=== PATIENT | female | born 1990 | race Hispanic/Latino ===

== ENCOUNTER 2017-03-19 10:33 | Emergency (ER) | payer OTHER ==
[2017-03-19 10:54] VITALS: BMI 26.6
[2017-03-19] MEDS ORDERED: Sodium Chloride 0.9% 1,000 ML IV STA (11:14)
[2017-03-19] MEDS ORDERED: guaiFENesin DM 200 mg-20 mg/10 ml UD PO PRN (11:15)
[2017-03-19] MEDS ORDERED: Albuterol-Ipratrop 3 mg / 0.5 (3 ml) UD IH STA (11:16)
--- NOTE | 2017-03-19 11:20 | ED PDOC ---
Arrival/HPI - General Chief Complaint: Flu-like Symptoms Time Seen by Provider: 03/19/17 11:13 Historian: Patient - History of Present Illness Narrative History of Present Illness (Text): 03/19/17 11:18 pt p/w + 4 days onset of dry coughing, worsening over the last few days, OTC medications are not helping; + bodyaches, + sore throat, + runny nose, + severe coughing inducing her to vomit, noted at least ~ 10 episodes of vomiting since 1 -2 days; + fever/chills, no sweats; pt states she passed out yesterday, no cp/ palpitations, + sob/wheezing, no abd pain, no numbness/tingling, no urinary/ bowel changes, no fall/trauma/travel, ? sick contact (pt works as a pre-schoolschool bus driver/custodian); pt also noted right thigh rash x 1 week (puritic and slightly painful) ; pt states no diarrhea/urinary changes; pt is here for further eval; pt's without other complaints. 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 - Renal Hx Renal Disorder: No - Endocrine/Metabolic Hx Endocrine Disorders: No - Hematological/Oncological Hx Blood Disorders: Yes Hx Cancer: Yes (cervical cancer) - Gastrointestinal Hx Gastrointestinal Disorders: No - Psychiatric Hx Substance Use: No - Surgical History Hx Tonsillectomy: Yes - Anesthesia Hx Anesthesia: (t) Hx Anesthesia Reactions: No Hx Malignant Hyperthermia: No - Suicidal Assessment Suicidal Thoughts: No Family/Social History - Physician Review Nursing Documentation Reviewed: Yes Family/Social History: No Known Family HX (no early family hx of IA, no sudden in family members; no family members requiring pacemaker/defibillrators) Smoking Status: Former Smoker (quit 6months ago) Hx Alcohol Use: Yes Frequency of alcohol use: Socially Hx Substance Use: No Allergies/Home Meds Allergies/Adverse Reactions: Allergies chocolate flavor Allergy (Verified 03/19/17 10:55) RASH lactase [From Dairy Aid] Allergy (Verified 03/19/17 10:55) RASH mold Allergy (Verified 03/19/17 10:55) RASH thiamine (vitamin B1) [From Thiamilate] Allergy (Verified 03/19/17 10:55) RASH dust Allergy (Uncoded 03/19/17 10:55) RASH Home Medications: Home Meds Medication Instructions Recorded Confirmed Albuterol HFA [Ventolin HFA 90 2 puff PO PRN PRN 03/19/17 03/19/17 mcg/actuation (8 g)] Review of Systems - Review of Systems Constitutional: Fatigue, Fevers Eyes: Normal ENT: Sore Throat, Rhinorrhea, Sinus Congestion. absent: Hearing Changes, Voice Changes Respiratory: SOB, Cough, Wheezing. absent: Sputum Cardiovascular: Syncope Gastrointestinal: Nausea, Vomiting Genitourinary Female: Normal Musculoskeletal: Normal Skin: Rash Neurological: Headache, Dizziness Endocrine: Normal Hemo/Lymphatic: Normal Psychiatric: Normal Physical Exam Vital Signs Reviewed: Yes (elevated HR/TEMP) Vital Signs Temp Pulse Resp BP Pulse Ox 03/19/17 13:22 100.5 F H 112 H 18 152/71 H 100 03/19/17 12:50 118 H 17 155/76 H 100 03/19/17 10:55 101.3 F H 125 H 20 127/88 97 Temperature: Febrile Blood Pressure: Normal Pulse: Tachycardic Respiratory Rate: Normal Appearance: Positive for: Well-Appearing, Other (uncomfortable, actively coughing/dry coughing; resting in bed, NAD) Pain Distress: None Mental Status: Positive for: Alert and Oriented X 3 - Systems Exam Head: Present: Atraumatic, Normocephalic Pupils: Present: PERRL Extroacular Muscles: Present: EOMI Conjunctiva: Present: Normal Ears: Present: Normal Mouth: Present: Moist Mucous Membranes Pharnyx: Present: Normal Neck: Present: Normal Range of Motion Respiratory/Chest: Present: Clear to Auscultation (no wheezing/rales/rhonchi noted, decr breath sounds noted bilaterally), Decreased Breath Sounds. No: Wheezes, Rales Cardiovascular: Present: Normal S1, S2, Other (+ tachycardic; no murmur) Abdomen: Present: Normal Bowel Sounds, Other (well nourished female, no focal tenderness, no 's sign, no mcburney's point tenderness). No: Tenderness, Distention Back: Present: Normal Inspection. No: CVA Tenderness Upper Extremity: Present: Normal Inspection, Normal ROM, NORMAL PULSES. No: Edema Lower Extremity: Present: Normal Inspection, NORMAL PULSES, Normal ROM Neurological: Present: GCS=15, CN II-XII Intact, Speech Normal Skin: Present: Warm, Normal Color, Other (noted an oval shaped patch of vesicluar like rashes located at the right inner/medial anterior thigh region; lesions appears to be clusters of vesicular lesions with slight erythematous base; no nikosky's sign noted) Psychiatric: Present: Alert, Oriented x 3, Normal Insight, Normal Concentration , Normal Affect Medical Decision Making ED Course and Treatment: 03/19/17 11:30 pt with fever/dehydration, post-tussive vomiting; decr appetite; ? sick contact ; syncope pt's syncope unlikely due to cardiac cause A/P: fever/dizzy/vomiting/syncope - labs, UA - iv - xray - observe, supportive care 03/19/2017 12:57 Chest X-ray HISTORY: COMPARISON: No prior. TECHNIQUE: Chest PA and lateral FINDINGS: LINES AND TUBES: None. LUNG AND PLEURA: There is mild pulmonary hyperinflation and peribronchial thickening with streaky opacities in the lungs. No focal consolidation. HEART AND MEDIASTINUM: The heart is not enlarged. The hilar and mediastinal contours are within normal limits. SKELETAL STRUCTURES: The bony structures are within normal limits for the patient's age. VISUALIZED UPPER ABDOMEN: Normal. OTHER FINDINGS: None. IMPRESSION: Findings are most compatible with reactive small airway disease/ viral bronchitis/atypical penumonitis. No lobar pneumonia. Dictator: Wendy Sheehan MD 03/19/17 13:50 pt is doing well pt's vital signs are improved pt did not vomit while in the ED pt's coughing continues however pt remained comfortable pt is made aware of her medical results pt is encouraged fluids pt is instructed on trying 1 tsp of honey for coughing control pt will f/u as directed pt will be discharged home Reassessment Condition: Improved - Lab Interpretations Lab Results: 03/19/17 11:45 03/19/17 11:45 Lab Results 03/19/17 11:45: Sodium 137, Potassium 4.0, Chloride 101, Carbon Dioxide 25, Anion Gap 15, BUN 14, Creatinine 0.7, Est GFR ( Amer) > 60, Est GFR (Non- Af Amer) > 60, Random Glucose 94, Calcium 9.2, Total Bilirubin 0.7, AST 25, ALT 32, Alkaline Phosphatase 66, Total Protein 7.8, Albumin 4.2, Globulin 3.6, Albumin/Globulin Ratio 1.1 03/19/17 11:45: WBC 8.7, RBC 4.54, Hgb 14.5, Hct 41.7, MCV 91.9, MCH 31.9, MCHC 34.8, RDW 12.6, Plt Count 289, MPV 9.2, Gran % 75.1 H, Lymph % (Auto) 13.1 L, [place] % (Auto) 11.6 H, Eos % (Auto) 0.0 L, Baso % (Auto) 0.2, Gran # 6.55 H, Lymph # 1.1 L, [place] # 1.0 H, Eos # 0.0, Baso # 0.02 I have reviewed the lab results: Yes Interpretation: All labs normal - RAD Interpretation Narrative RAD Interpretations (Text): 03/19/17 13:14 FINDINGS: LINES AND TUBES: None. LUNG AND PLEURA: There is mild pulmonary hyperinflation and peribronchial thickening with streaky opacities in the lungs. No focal consolidation. HEART AND MEDIASTINUM: The heart is not enlarged. The hilar and mediastinal contours are within normal limits. SKELETAL STRUCTURES: The bony structures are within normal limits for the patient's age. VISUALIZED UPPER ABDOMEN: Normal. OTHER FINDINGS: None. IMPRESSION: Findings are most compatible with reactive small airway disease/ viral bronchitis/ atypical pneumonitis. No lobar pneumonia. Radiology Orders: 03/19/17 11:16 CHEST TWO VIEWS (PA/LAT) [RAD] Stat Compounding And Finishing Supervisor: Radiologist - EKG Interpretation EKG Interpretation (Text): 03/19/17 11:33 Sinus tach at 125bpm, normal axis, no ectopy, inverted T in leads III, no st changes, otherwise WNL EKG; no old ekg to compare with Interpreted by ED Physician: Yes Type: 12 lead EKG Comparison: No previous EKG avail. - Medication Orders Current Medication Orders: Guaifenesin/Dextromethorphan (Robitussin Dm) 10 ml PO Q4H PRN PRN Reason: Cough Last Admin: 03/19/17 11:45 Dose: 10 ml Discontinued Medications Albuterol/Ipratropium (Duoneb 3 Mg/0.5 Mg (3 Ml) Ud) 3 ml IH STAT STA Stop: 03/19/17 11:17 Last Admin: 03/19/17 11:45 Dose: 3 ml Azithromycin (Zithromax) 500 mg PO STAT STA PRN Reason: Protocol Stop: 03/19/17 13:16 Sodium Chloride (Sodium Chloride 0.9%) 1,000 mls @ 999 mls/hr IV .Q1H1M STA Stop: 03/19/17 12:14 Last Admin: 03/19/17 11:45 Dose: 999 mls/hr eMAR Start Stop Document 03/19/17 11:45 OCS (Rec: 03/19/17 11:45 [facility] [place] [id number]) Intravenous Solution Start Date 03/19/17 Start Time 11:45 Ibuprofen (Motrin Tab) 600 mg PO STAT STA Stop: 03/19/17 11:32 Ondansetron HCl (Zofran Inj) 4 mg IVP STAT STA Stop: 03/19/17 11:16 Last Admin: 03/19/17 11:45 Dose: 4 mg IVP Administration Document 03/19/17 11:45 OCS (Rec: 03/19/17 11:45 [facility] [id number]) Charges for Administration # of IVP Administrations 1 Disposition/Present on Arrival - Present on Arrival Any Indicators Present on Arrival: Yes History of DVT/PE: No History of Uncontrolled Diabetes: No Urinary Catheter: No History of Decub. Ulcer: No History Surgical Site Infection Following: None - Disposition Have Diagnosis and Disposition been Completed?: Yes Diagnosis: Bronchitis, Cough, Dehydration Disposition: HOME/ ROUTINE Disposition Time: 13:41 Patient Plan: Discharge Condition: STABLE Discharge Instructions (ExitCare): Cold Symptoms (ED), Acute Cough (ED), Acute Bronchitis (ED), Dehydration (ED) Print Language: CROATIAN Additional Instructions: Make sure to see your doctor in 1-2 days DRINK PLENTY OF FLUIDS Try 1 teaspoon of honey every 8hours take your medications as prescribed RETURN TO ED IF worse pain, cant breath, persistent vomiting, high fever >101- 102 for hours, altered behavior, unable to urinate, heavy/persistent bleeding, passing out, chest pain, or other medical emergencies [BEE HOLT], thank you for letting us take care of you today. Your provider was [Aureliano Bateman MD]. You were treated for [acute bronchitis/cough]. The emergency medical care you received today was directed at your acute symptoms. If you were prescribed any medication, please fill it and take as directed. It may take several days for your symptoms to resolve. Return to the Emergency Department if your symptoms worsen, do not improve, or if you have any other problems. Please contact your doctor or call one of the physicians/clinics you have been referred to that are listed on the Patient Visit Information form that is included in your discharge packet. Bring any paperwork you were given at discharge with you along with any medications you are taking to your follow up visit. Our treatment cannot replace ongoing medical care by a primary care provider (PCP) outside of the emergency department. Thank you for allowing the [facility] team to be part of your care today. If you had an X-Ray or CT scan: A Radiologist will review the ED reading if any change in treatment is needed we will contact you. If you had a blood, urine, or wound culture: It will take several days for the results, if any change in treatment is needed we will contact you. If you had an STI test: It will take 48 hours for the results. Please call after 1 week if you have not heard back. Prescriptions: Azithromycin [Zithromax] 250 mg PO DAILY #4 tab Benzonatate [Tessalon Perles] 100 mg PO TID #15 tab Ibuprofen [Motrin] 600 mg PO Q6 #30 tab Referrals: PCP,NO [Family Provider] - Follow up with primary Forms: UGE (Algerian)
[2017-03-19 12:01] LABS: BASO # 0.02 K/mm3 (0.0-2.0); BASO % 0.2 % (0.0-3.0); GRAN # 6.55 (1.4-6.5); GRAN % 75.1 % (50.0-68.0); HEMATOCRIT 41.7 % (36.0-48.0); LYMPH # 1.1 (1.2-3.4); LYMPH % 13.1 % (22.0-35.0); MEAN CELL VOLUME 91.9 fl (80.0-105.0); MEAN CORPUSCULAR HEMOGLOBIN 31.9 pg (25.0-35.0); MEAN CORPUSCULAR HGB CONC 34.8 g/dl (31.0-37.0); MEAN PLATELET VOLUME 9.2 fl (7.0-11.0); MONO % 11.6 % (1.0-6.0); RED CELL DISTRIBUTION WIDTH 12.6 % (11.5-14.5); WHITE BLOOD COUNT 8.7 10^3/ul (4.5-11.0)
[2017-03-19 12:05] LABS: ALB/GLOB RATIO 1.1 (1.1-1.8); ALKALINE PHOSPHATASE 66 U/L (38-126); ALT/SGPT 32 U/L (7-56); AST/SGOT 25 U/L (14-36); BILIRUBIN,TOTAL 0.7 mg/dL (0.2-1.3); BLOOD UREA NITROGEN 14 mg/dL (7-21); CALCIUM 9.2 mg/dL (8.4-10.5); CARBON DIOXIDE 25 mmol/L (21-33); CHLORIDE 101 mmol/L (98-107); GFR AFRICAN-AMERICAN > 60; GLUCOSE,RANDOM 94 mg/dL (70-110); SODIUM 137 mmol/L (132-148); TOTAL PROTEIN 7.8 g/dL (5.8-8.3)
[2017-03-19 12:51] VITALS: O2SAT 100
--- NOTE | 2017-03-19 12:59 | RAD ---
HISTORY: COMPARISON: No prior. TECHNIQUE: Chest PA and lateral FINDINGS: LINES AND TUBES: None. LUNG AND PLEURA: There is mild pulmonary hyperinflation and peribronchial thickening with streaky opacities in the lungs. No focal consolidation. HEART AND MEDIASTINUM: The heart is not enlarged. The hilar and mediastinal contours are within normal limits. SKELETAL STRUCTURES: The bony structures are within normal limits for the patient's age. VISUALIZED UPPER ABDOMEN: Normal. OTHER FINDINGS: None. IMPRESSION: Findings are most compatible with reactive small airway disease/ viral bronchitis/ atypical pneumonitis. No lobar pneumonia.
[2017-03-19 13:22] VITALS: BP 152/71; PULSE 112; RESP 18; TEMP 100.5
--- NOTE | 2017-03-19 16:44 | CARD ---
APPROVED REPORT EKG Measurement Heart [id number] <Conclusion> Sinus tachycardia Otherwise normal ECG
== END 2017-03-19 13:55 | disposition home or self-care (01) ==
LOC: ED 10:33
DX: J20.9 Acute bronchitis, unspecified (principal); E86.0 Dehydration; Z87.891 Personal history of nicotine dependence
CPT/HCPCS: 71020; 80053; 85025; 93005; 94640; 96374; 99283; J2405; J7040

== ENCOUNTER 2017-03-20 14:18 | Emergency (ER) | payer OTHER ==
[2017-03-20 14:18] VITALS: BMI 26.6
[2017-03-20 14:32] VITALS: TEMP 99.9
[2017-03-20] MEDS ORDERED: Promethazine/Cod 6.25mg-10mg/5ml Syr UD PO STA (14:43)
--- NOTE | 2017-03-20 15:01 | ED PDOC ---
Arrival/HPI - General Historian: Patient - General Chief Complaint: Cough, Cold, Congestion Time Seen by Provider: 03/20/17 14:33 - History of Present Illness Narrative History of Present Illness (Text): 03/20/17 14:56 26yo female present with complaint of cough, chills, nausea and vomiting. She was seen here yesterday for same complaint. she was DC home with Tessalon, Zpack and Ibuprofen. States she is still coughing mostly at night. Reports an episode of blook streak vomitus this morning. Denies abdominal pain, headache, chest pain, SOB, diaphoresis, sick contact, any other complaint. 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 - Renal Hx Renal Disorder: No - Endocrine/Metabolic Hx Endocrine Disorders: No - Hematological/Oncological Hx Blood Disorders: Yes Hx Cancer: Yes (cervical cancer) - Gastrointestinal Hx Gastrointestinal Disorders: No - Genitourinary/Gynecological Hx Genitourinary Disorders: Yes - Psychiatric Hx Psychophysiologic Disorder: Yes Hx Substance Use: No - Surgical History Hx Tonsillectomy: Yes - Anesthesia Hx Anesthesia: (t) Hx Anesthesia Reactions: No Hx Malignant Hyperthermia: No Family/Social History - Physician Review Nursing Documentation Reviewed: Yes Family/Social History: Unknown Family HX Smoking Status: Former Smoker Hx Alcohol Use: Yes Frequency of alcohol use: Socially Hx Substance Use: No Allergies/Home Meds Allergies/Adverse Reactions: Allergies chocolate flavor Allergy (Verified 03/20/17 14:32) RASH lactase [From Dairy Aid] Allergy (Verified 03/20/17 14:32) RASH mold Allergy (Verified 03/20/17 14:32) RASH thiamine (vitamin B1) [From Thiamilate] Allergy (Verified 03/20/17 14:32) RASH dust Allergy (Uncoded 03/20/17 14:32) RASH Home Medications: Home Meds Medication Instructions Recorded Confirmed Albuterol HFA [Ventolin HFA 90 2 puff PO PRN PRN 03/19/17 03/20/17 mcg/actuation (8 g)] Review of Systems - Physician Review All systems were reviewed & negative as marked: Yes - Review of Systems Constitutional: Normal Eyes: Normal ENT: Normal Respiratory: Cough Cardiovascular: Normal Gastrointestinal: Nausea, Vomiting. absent: Abdominal Pain, Constipation, Diarrhea, Hematochezia, Hematemesis Genitourinary Female: Normal Musculoskeletal: Normal Skin: Normal Neurological: Normal Endocrine: Normal Hemo/Lymphatic: Normal Psychiatric: Normal Physical Exam Vital Signs Reviewed: Yes Temperature: Afebrile Blood Pressure: Normal Pulse: Tachycardic Respiratory Rate: Normal Appearance: Positive for: Well-Appearing, Non-Toxic, Comfortable Pain Distress: None Mental Status: Positive for: Alert and Oriented X 3 - Systems Exam Head: Present: Atraumatic, Normocephalic Pupils: Present: PERRL Extroacular Muscles: Present: EOMI Conjunctiva: Present: Normal Mouth: Present: Moist Mucous Membranes Neck: Present: Normal Range of Motion Respiratory/Chest: Present: Clear to Auscultation, Good Air Exchange. No: Respiratory Distress, Accessory Muscle Use, Wheezes, Decreased Breath Sounds, Rales, Retracting, Rhonchi, Tachypneic Cardiovascular: Present: Regular Rate and Rhythm, Normal S1, S2. No: Murmurs Abdomen: Present: Normal Bowel Sounds, Other (Soft). No: Tenderness, Distention , Peritoneal Signs, Rebound, Guarding, McBurney's Point Tender, Rovsing's Sign Present Back: Present: Normal Inspection Upper Extremity: Present: Normal Inspection. No: Cyanosis, Edema Lower Extremity: Present: Normal Inspection. No: Edema Neurological: Present: GCS=15, CN II-XII Intact, Speech Normal Skin: Present: Warm, Dry, Normal Color. No: Rashes Psychiatric: Present: Alert, Oriented x 3, Normal Insight, Normal Concentration Vital Signs Temp Pulse Resp BP Pulse Ox 03/20/17 16:36 106 H 20 107/68 98 03/20/17 15:29 114 H 20 103/54 L 97 03/20/17 14:29 99.9 F H 124 H 18 124/88 99 Medical Decision Making ED Course and Treatment: 03/21/17 01:27 PT presented for stated history. She was afebrile, tachy in ED. Pt was seen here in ED yesterday and lab was unremarkable. Plan was to given antiemetics and antitussive. Lab was however ordered and pt was hydrated secondary to her tachycardia. Her HR improved in ED. She was not lethargic. She was DC home with Promethazine with codeine and zofran. Advised to continue with her abx and pepcid. Referred to her PMD. TRT ED for any new or worsening symptoms (Gustabo Monzon) - Lab Interpretations Lab Results: 03/20/17 15:55 03/20/17 15:55 Lab Results 03/20/17 15:55: Sodium 138, Potassium 3.9, Chloride 105, Carbon Dioxide 22, Anion Gap 15, BUN 6 L, Creatinine 0.7, Est GFR ( Amer) > 60, Est GFR (Non -Af Amer) > 60, Random Glucose 105, Calcium 9.1, Total Bilirubin 0.6, AST 32, ALT 32, Alkaline Phosphatase 66, Total Protein 7.6, Albumin 4.0, Globulin 3.6, Albumin/Globulin Ratio 1.1 03/20/17 15:55: WBC 6.9 D, RBC 4.49, Hgb 14.1, Hct 41.1, MCV 91.5, MCH 31.4, MCHC 34.3, RDW 12.6, Plt Count 280, MPV 9.5, Gran % 75.4 H, Lymph % (Auto) 15.9 L, [place] % (Auto) 8.0 H, Eos % (Auto) 0.3 L, Baso % (Auto) 0.4, Gran # 5.16, Lymph # 1.1 L, [place] # 0.6, Eos # 0.0, Baso # 0.03 - Medication Orders Current Medication Orders: Discontinued Medications Sodium Chloride (Sodium Chloride 0.9%) 1,000 mls @ 999 mls/hr IV .Q1H1M STA Stop: 03/20/17 16:35 Last Admin: 03/20/17 16:17 Dose: 999 mls/hr eMAR Start Stop Document 03/20/17 16:17 EQ (Rec: 03/20/17 16:17 EQ [id number]) Intravenous Solution Start Date 03/20/17 Start Time 16:17 Ondansetron HCl (Zofran Odt) 4 mg PO STAT STA Stop: 03/20/17 14:44 Last Admin: 03/20/17 15:18 Dose: 4 mg Pantoprazole Sodium (Protonix Inj) 40 mg IVP STAT STA Stop: 03/20/17 15:36 Last Admin: 03/20/17 16:16 Dose: 40 mg IVP Administration Document 03/20/17 16:16 EQ (Rec: 03/20/17 16:17 EQ [id number]) Charges for Administration # of IVP Administrations 1 Promethazine HCl/Codeine (Phenergan/Codeine Oral Syrup) 5 ml PO STAT STA Stop: 03/20/17 14:44 Last Admin: 03/20/17 15:18 Dose: 5 ml Disposition/Present on Arrival - Present on Arrival Any Indicators Present on Arrival: No History of DVT/PE: No History of Uncontrolled Diabetes: No Urinary Catheter: No History of Decub. Ulcer: No History Surgical Site Infection Following: None - Disposition Have Diagnosis and Disposition been Completed?: Yes Disposition Time: 17:00 Patient Plan: Discharge - Disposition Diagnosis: Cough, Vomiting Disposition: HOME/ ROUTINE Condition: STABLE Discharge Instructions (ExitCare): Acute Nausea and Vomiting (ED), Acute Cough (ED) Additional Instructions: Follow up with your Doctor Return to ED for any new or worsening symptoms Prescriptions: Ondansetron ODT [Zofran ODT] 4 mg PO Q6 #6 odt Promethazine HCl/Codeine [Prometh-Codein 6.25-10 mg/5 ml] 5 ml PO Q6 #100 ml Referrals: Marck Ponce, [Primary Care Provider] - Follow up with primary Forms: Orchestrate (Martiniquais)
[2017-03-20 15:30] VITALS: RESP 20
[2017-03-20] MEDS ORDERED: Sodium Chloride 0.9% 1,000 ML IV STA (15:35)
[2017-03-20 16:14] LABS: BASO # 0.03 K/mm3 (0.0-2.0); BASO % 0.4 % (0.0-3.0); EOS % 0.3 % (1.5-5.0); GRAN # 5.16 (1.4-6.5); GRAN % 75.4 % (50.0-68.0); HEMATOCRIT 41.1 % (36.0-48.0); LYMPH # 1.1 (1.2-3.4); LYMPH % 15.9 % (22.0-35.0); MEAN CELL VOLUME 91.5 fl (80.0-105.0); MEAN CORPUSCULAR HEMOGLOBIN 31.4 pg (25.0-35.0); MEAN CORPUSCULAR HGB CONC 34.3 g/dl (31.0-37.0); MEAN PLATELET VOLUME 9.5 fl (7.0-11.0); MONO # 0.6 (0.1-0.6); RED CELL DISTRIBUTION WIDTH 12.6 % (11.5-14.5); WHITE BLOOD COUNT 6.9 10^3/ul (4.5-11.0)
[2017-03-20 16:37] VITALS: BP 107/68; O2SAT 98
[2017-03-20 16:51] LABS: BLOOD UREA NITROGEN 6 mg/dL (7-21); CHLORIDE 105 mmol/L (98-107); GFR AFRICAN-AMERICAN > 60; GLUCOSE,RANDOM 105 mg/dL (70-110); POTASSIUM 3.9 mmol/L (3.6-5.0); SODIUM 138 mmol/L (132-148)
[2017-03-20 16:52] LABS: ALB/GLOB RATIO 1.1 (1.1-1.8); ALKALINE PHOSPHATASE 66 U/L (38-126); ALT/SGPT 32 U/L (7-56); AST/SGOT 32 U/L (14-36); BILIRUBIN,TOTAL 0.6 mg/dL (0.2-1.3); CALCIUM 9.1 mg/dL (8.4-10.5); CARBON DIOXIDE 22 mmol/L (21-33); TOTAL PROTEIN 7.6 g/dL (5.8-8.3)
[2017-03-20 17:20] VITALS: PULSE 106
[2017-03-21] MEDS ORDERED: Etomidate 20 mg/10ml Inj IV ONE (00:04)
== END 2017-03-20 17:22 | disposition home or self-care (01) ==
LOC: ED 14:18
DX: R05 Cough (principal); R11.10 Vomiting, unspecified
CPT/HCPCS: 80053; 85025; 96374; 99283; C9113; J7040